=== PATIENT | male | born 1940 | race African-American/Black ===

== ENCOUNTER 2020-11-19 19:37 | Inpatient (IN) | payer OTHER ==
[~2020-11-19] VITALS: Ht 170.2 cm; Wt 93.9 kg
--- NOTE | ~2020-11-19 | HC ---
[facility] [place] [address] CONSULTATION Name: KAREN DUENAS Room #: 201-P ADM IN M.R.#: [id number] Admission: 11/19/20 Attend Phys: Augustine Caldera MD Discharge: Date of : 42 Report #: [id number] THIS REPORT FOR: cc: ANDRES - No family physician/PCP FAM - No family physician/PCP Rafa Milan MD ~ DATE OF SERVICE: 11/29/2020 HISTORY OF PRESENT ILLNESS: The patient is a 79-year-old white male who was admitted with syncope with loss of consciousness. Noted to have acute renal insufficiency, left upper lobe pneumonia. He was diagnosed with sepsis. He was noted to have acute hypoxic respiratory failure. His creatinine is plateauing at around 4.1. He has not needed any dialysis. He has been treated for atrial fibrillation with rapid ventricular response. PAST MEDICAL HISTORY: Includes diabetes mellitus type 2, bilateral rotator cuff surgery, chronic kidney disease. 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 Lives in a house with his . No assistive device. PHYSICAL EXAMINATION: GENERAL: A 79-year-old male, in no obvious distress. VITAL SIGNS: Temperature 97.5, pulse 72, respirations 18, blood pressure 149/59. He is on 2 liters nasal cannula. EXTREMITIES: Bilateral lower extremity nonpitting edema. He has been ambulating including walking up in the halls. This includes ambulation up to 450 feet. Standby assistance are 11/25 without adaptive devices. On 11/26/2020, occupational therapy has actually discharged him as they noted that he was at his baseline for ADLs. ASSESSMENT: 79-year-old white male with the following problem list: 1. Syncope with loss of consciousness. 2. Acute hypoxic respiratory failure, which is improving. 3. Community acquired pneumonia. 4. Sepsis. 5. Atrial fibrillation with rapid ventricular response. 6. Chronic kidney disease. Nephrology is involved with stabilization around a creatinine of 4.1. PLAN: Occupational therapy has already discharged him and he is ambulating quite well in physical therapy as documented. I do not see that he would meet criteria for an acute [address] [place] [address] inpatient rehabilitation stay as he appears to be too high level. [facility] [address] [place] [address] CONSULTATION Name: KAREN DUENAS Room #: 201-P ADM IN M.R.#: [id number] Admission: 11/19/20 Attend Phys: Augustine Caldera MD Discharge: Date of : 42 Report #: [id number] Thank you for asking us to assist in this patient's care. By: [id number] Rafa Milan MD /nt
[2020-11-19 19:57] VITALS: BP 153/66
[2020-11-19 20:49] LABS: ABSOLUTE NEUTROPHILS 12.7 thou/uL (1.4-8.2); BASOPHILS 0.6 % (0.0-2.0); EOSINOPHILS 0.1 % (0.0-3.0); HEMATOCRIT 36.3 % (42.0-52.0); HEMOGLOBIN 12.1 gm/dL (14.0-18.0); LYMPHOCYTES 8.6 % (24.0-44.0); MCH 31.2 pg (26.0-34.0); MCHC 33.3 g/dL (28.0-37.0); MCV 93.8 fL (80.0-100.0); MONOCYTES 7.8 % (1.0-8.0); PLATELET COUNT 238 thou/uL (150-400); POLYS 82.9 % (36.0-66.0); RBC 3.87 mil/uL (4.50-6.00); RDW 13.1 % (10.5-14.5); WBC 15.3 thou/uL (4.0-11.0)
[2020-11-19 20:51] LABS: CALCIUM 8.9 mg/dL (8.5-10.1); CREATININE 2.4 mg/dL (0.7-1.3); POTASSIUM 4.2 mmol/L (3.5-5.1)
[2020-11-19 20:58] LABS: ALBUMIN 2.9 g/dL (3.4-5.0); TOTAL BILIRUBIN 0.8 mg/dL (0.2-1.0); TOTAL PROTEIN 8.2 g/dL (6.4-8.2)
[2020-11-19] MEDS ORDERED: AMLODIPINE BESY10 MG PO (20:59)
[2020-11-19] MEDS ORDERED: GLIPIZIDE 10 MG10 MG PO (20:59)
[2020-11-19] MEDS ORDERED: ACTOS 45 MG45 M1 PO (21:00)
[2020-11-19] MEDS ORDERED: GLUMETZA1000 PO (21:00)
[2020-11-19] MEDS ORDERED: ZOCOR 20 MG TAB20 M1 PO (21:00)
[2020-11-19] MEDS ORDERED: HYDROCHLOROTHIA25 M1 PO (21:01)
[2020-11-19 23:10] LABS: URINE BILIRUBIN NEGATIVE (Negative); URINE BLOOD 1+ (Negative); URINE CLARITY CLEAR; URINE COLOR YELLOW; URINE GLUCOSE-RANDOM* NEGATIVE (Negative); URINE KETONES 1+ (Negative); URINE LEUKOCYTES-REFLEX NEGATIVE (Negative); URINE NITRITE-REFLEX NEGATIVE (Negative); URINE PROTEIN (DIPSTICK) 2+ (Negative); URINE SPECIFIC GRAVITY >= 1.030 (1.005-1.035); URINE UROBILINOGEN 0.2 E.U./dl (0.2-1.0)
[2020-11-19 23:21] LABS: FINE GRANULAR CASTS 0-3 Few /LPF (None Seen); HYALINE CASTS 0-3 Few /LPF (None Seen); MUCUS 0-3 Light strn/LPF (None Seen); SQUAMOUS None Seen /LPF (0-3); URINE WBC-REFLEX None Seen /HPF (0-5)
[2020-11-19 23:22] LABS: BACTERIA-REFLEX None Seen /HPF (None Seen); CRYSTALS None Seen /LPF (None Seen); URINE RBC 1-2 Rare /HPF (NONE SEEN)
[2020-11-20] VITALS (7 sets, daily range): BP systolic 121–170; BP diastolic 55–78
--- NOTE | 2020-11-20 02:49 | NUR ---
EXPLAINED VISITING HOURS TO AT 2400, SHE VERBALIZES UNDERSTANDING OF THIS
--- NOTE | 2020-11-20 15:26 | NUR ---
ASSUMED CARE OF PT AT 0700 THIS MORNING. PT HAS BEEN DX WITH PNUEMONIA BUT IS DOING WELL. PT IS A/OX4 WITH DIMINISHED LT LOWER RYAN AND WHEEZES THROUGOUT. ASSESSMENTS NOTE IN CHART AND OTHERWISE UNREMARKABLE. IV IN LT AC WITH NS AT 126ML/HR. PT CAN TRANFER TO BEDSIDE COMODE X1 ASST WITH GB. MEDS AND TX GIVEN NEEDED AND SCHEDULED. WILL MONITOR AND NOTE ANY CHANGES.
[2020-11-21] VITALS (7 sets, daily range): BP systolic 150–187; BP diastolic 66–97
--- NOTE | 2020-11-21 04:06 | NUR ---
PT ASSESSMENT COMPLETED AND VSS. MEDS GIVEN ORDERED AND WELL TOLERATED. FALL PRECAUTIONS IN PLACE. PTS IN ROOM EARLY DURING THE SHIFT. SHE IS VERY PLEASANT AND SUPPORTIVE AND REALLY HELPS TO CALM PT. PT IS THINKING THAT HE WILL BE GOING HOME IN THE MORNING. TALKED WITH PT AND ABOUT HOW STAYING IN THE HOSPITAL IS IMPORTANT BECAUSE OF HIS PNEUMONIA. SAT WNL ON NC. IVF RUNNING. TYLENOL GIVEN FOR GENERAL DISCOMFORT AND LOW GRADE FEVER. PT VERY IMPULSIVE AND TRYING TO GO TO THE BSC WITHOUT CALLING. PT STATES THAT HE IS USED TO DOING THINGS ON HIS OWN. PROVIDED EDUCATION REGARDING CALLING FIRST AND BED ALARMS FOR SAFETY. PT STILL GETTING UP WITHOUT CALLING AT TIMES. PT HAD TWO LOOSE LARGE BROWN STOOLS THIS EVENING. VOIDING LARGE AMOUNT OF YELLOW URINE. SLEEPING WELL AT THIS TIME. HOB ELEVATED. WILL CONTINUE TO MONITOR FREQUENTLY. RT TREATMENTS CONTINUE.
--- NOTE | 2020-11-21 05:49 | NUR ---
OTTO CALLED X2, TECH STATES SHE IS BUSY WITH ANOTHER PATIENT BOTH TIMES. CECI NOTIFIED THAT PT IS TACHYPNEIC, DIAPHORETIC, AUDIBLY GURGLING, PANICKING, TRI-PODING AT BEDSIDE. HR 170-180, STAT EKG OBTAINED AND SENT TO [facility]EL[facility]. LASIX GIVEN PER ORDERS, O2 UP TO 4L NC, PT WITH SOME RELIEF.
[2020-11-21 07:05] LABS: HEMATOCRIT 35.6 % (42.0-52.0); HEMOGLOBIN 12.1 gm/dL (14.0-18.0); MCH 31.6 pg (26.0-34.0); RBC 3.83 mil/uL (4.50-6.00); RDW 13.2 % (10.5-14.5); WBC 12.7 thou/uL (4.0-11.0)
[2020-11-21 07:10] LABS: CALCIUM 8.2 mg/dL (8.5-10.1); CREATININE 1.8 mg/dL (0.7-1.3); POTASSIUM 4.1 mmol/L (3.5-5.1)
--- NOTE | 2020-11-21 08:57 | NUR ---
PT VERY SOA LATE THIS MORNING. HR ELEVATED. CONTACTED VALERIE ULLOA AND TALKED WITH RUTHIE FONG. FOLLOWED ORDERS GIVEN BY VALERIE ULLOA AND ASSISTED RUTHIE FONG AT BEDSIDE. PT APPEARS MORE COMFORTABLE AND CALM. HR COMING DOWN. TRANSFERED PT TO ROOM 201 AND GAVE REPORT TO DAY LUIS DANIELS.
--- NOTE | 2020-11-21 16:09 | 2DMMODE ---
[facility] [address] [place] [address] 2 D/M-MODE ECHOCARDIOGRAM Name: KAREN DUENAS Room #: 201-P ADM IN M.R.#: [id number] Admission: 11/19/20 Attend Phys: Israel Sweet MD Discharge: Date of : 41 Report #: [id number] THIS REPORT FOR: cc: FAM - No family physician/PCP FAM - No family physician/PCP Sky Perkins MD ~ APPROVED REPORT Study performed: 11/21/2020 12:40:12 EXAM: Comprehensive 2D, Doppler, and color-flow Echocardiogram Patient Location: Bedside Room #: 201 Status: on-call BSA: 1.93 HR: 125 bpm BP: 150/70 mmHg Rhythm: Tachycardia Other Information Study Quality: Adequate Risk Factors: Cardiac Risk Factors: DM Indications Dyspnea Syncope 2D Dimensions RVDd: 20.18 mm IVSd: 8.33 (7-11mm) LVOT Diam: 19.00 (18-24mm) LVDd: 46.04 mm PWd: 10.44 (7-11mm) Ascending Ao: 36.58 (22-36mm) LVDs: 34.15 (25-40mm) Aortic Root: 28.86 mm LV Single Plane 4CH: 55.90 % LV Single Plane 2CH: 61.35 % Biplane EF: 58.5 % Volumes Left Atrial Volume (Systole) Single Plane 4CH: 57.60 mL Single Plane 2CH: 39.86 mL LA ESV Index: 28.00 mL/m2 [facility] [address] [place] [address] 2 D/M-MODE ECHOCARDIOGRAM Name: YULISSAKAREN Room #: 201-P [facility] IN .R.#: [id number] Admission: 11/19/20 Attend Phys: Layla Zapata Discharge: Date of : 41 Report #: [id number] Aortic Valve AoV Peak Lebron.: 1.80 m/s AO Peak Gr.: 12.90 mmHg LVOT Max P.70 mmHg LVOT Max V: 1.19 m/s KIRK Vmax: 1.92 cm2 Pulmonary Valve PV Peak Lebron.: 1.22 m/s PV Peak Gr.: 5.92 mmHg Tricuspid Valve TR Peak Lebron.: 3.09 m/s RAP Estimate: 10.00 mmHg TR Peak Gr.: 38.21 mmHg PA Pressure: 48.00 mmHg Left Ventricle The left ventricle is normal size. There is normal LV segmental wall motion. There is normal left ventricular wall thickness. Left ventricular systolic function is normal. The left ventricular ejection fraction is within the normal range. LVEF is 55-60%. This study is not technically sufficient to allow evaluation of the LV diastolic function. Right Ventricle The right ventricle is normal size. The right ventricular systolic function is normal. Atria The left atrium size is normal. The right atrium size is normal. Aortic Valve The aortic valve is normal in structure. No aortic regurgitation is present. There is no aortic valvular stenosis. Mitral Valve The mitral valve is normal in structure. There is no mitral valve regurgitation noted. No evidence of mitral valve stenosis. Tricuspid Valve The tricuspid valve is normal in structure. Mild tricuspid regurgitation. Pulmonary artery pressure is 48 mmHg. Pulmonic Valve The pulmonary valve is normal in structure. There is no pulmonic valvular regurgitation. [facility] [place] [address] 2 D/M-MODE ECHOCARDIOGRAM Name: DUENASKAREN Room #: 201-P ADM IN M.R.#: [id number] Admission: 11/19/20 Attend Phys: Layla Zapata Discharge: Date of : 41 Report #: [id number] Great Vessels The aortic root is normal in size. The ascending aorta is normal in size. IVC is dilated and collapses >50% with inspiration. Pericardium There is no pericardial effusion. <Conclusion> The left ventricle is normal size. There is normal LV segmental wall motion. LVEF is 55-60%. The right ventricle is normal size. The left atrium size is normal. The aortic valve is normal in structure. The mitral valve is normal in structure. The tricuspid valve is normal in structure. Mild tricuspid regurgitation. Pulmonary artery pressure is 48 mmHg. The pulmonary valve is normal in structure. The aortic root is normal in size. There is no pericardial effusion. <ELECTRONICALLY SIGNED> By: Sky Perkins MD 11/21/20 1608 [id number] Sky Perkins MD /INF
--- NOTE | 2020-11-21 18:39 | NUR ---
PT TRANSFER FROM [facility] AT 0700 DUE TO AFIB HEART RATE 150'S. PT STARTED ON CARDIZEM GTT. HEART RATE NOW IN THE 90'S. PT ALERT AND ORIENTED TIMES FOUR. DENIES PAIN. SOA ON EXCERTION 3L NC. PT TOLERATES MEDS AND MEALS. PT UP TO BSC WITH STANBY ASSIST. PT AT BEDSIDE. WILL CONTINUE TO MONITOR.
--- NOTE | 2020-11-22 02:48 | NUR ---
ASSUMED CARE OF PT AT 1900, PT ASSESSMENT COMPLETED NOTED. PT REMAINS ON O2 @ 4LPM NC, WITH AUDIBLE EXP WHEEZE, PT DENIES PAIN AT THIS TIME. PT INSTRUCTED TO USE CALL LIGHT PRIOR TO AMBULATING TO BEDSIDE COMMODE, PT STATES UNDERSTANDING. FALL PRECAUTIONS IN PLACE. @ 2040 PT HR INCREASED TO THE 160'S AFTER AMBULATION CARDIZEM DRIP INCREASED TO 15MG PER PROTOCOL, HR DECREASED TO 116 AFTER 20 MINUTES AT WHICH TIME MEDICATION TITRATED DOWN TO 10MG/HR. @ 2315 PT HR INCREASED TO 150'S AFTER AMBULATION, MEDICATION TITRATED UP TO 15MG/HR PER PROTOCOL. PT HR DECREASED TO 117 AFTER 10 MINUTES, MEDICATION TITRATED DOWN TO 10MG/HR. PT DENIES CP, BUT BECOMES SOA WITH AMBULATION. WILL CONTINUE TO WORK TOWARDS PT'S POC.
[2020-11-22 03:58] LABS: CALCIUM 7.7 mg/dL (8.5-10.1); POTASSIUM 4.2 mmol/L (3.5-5.1)
[2020-11-22 04:00] LABS: HEMATOCRIT 31.7 % (42.0-52.0); HEMOGLOBIN 10.9 gm/dL (14.0-18.0); MCH 32.3 pg (26.0-34.0); MCHC 34.3 g/dL (28.0-37.0); MCV 94.2 fL (80.0-100.0); RBC 3.36 mil/uL (4.50-6.00); RDW 13.2 % (10.5-14.5); WBC 11.8 thou/uL (4.0-11.0)
[2020-11-22 04:03] LABS: CREATININE 2.8 mg/dL (0.7-1.3)
[2020-11-22 04:41] VITALS: BP 152/56
[2020-11-22 07:10] VITALS: BP 124/71
[2020-11-22 11:00] VITALS: BP 140/60
[2020-11-22 15:00] VITALS: BP 124/58
--- NOTE | 2020-11-22 15:50 | NUR ---
PT RESTING COMFORTABLY. CARDIZEM GTT AT 20. PT AFEBRILE, ADEQUATE UOP, NO BM, FAIR APPETITE. PT AND FAMILY HAVE BEEN THOUROUGHLY UPDATED AND EDUCATED ON PT CONDITION AND POC. PT SLOWLY PROGRESSING TOWARDS POC.
[2020-11-22 20:40] VITALS: BP 152/64
[2020-11-22 21:25] LABS: URINE BILIRUBIN NEGATIVE (Negative); URINE BLOOD 3+ (Negative); URINE CLARITY SL CLOUDY; URINE COLOR YELLOW; URINE GLUCOSE-RANDOM* NEGATIVE (Negative); URINE KETONES NEGATIVE (Negative); URINE LEUKOCYTES NEGATIVE (Negative); URINE NITRITE NEGATIVE (Negative); URINE PROTEIN (DIPSTICK) 2+ (Negative); URINE UROBILINOGEN 0.2 E.U./dl (0.2-1.0)
[2020-11-22 21:31] LABS: URINE PROTEIN-RANDOM* 211.9 mg/dL (<11.9)
[2020-11-22 21:44] LABS: SQUAMOUS 0-3 Few /LPF (0-3)
[2020-11-22 21:45] LABS: BACTERIA 1-9 Few /HPF (None Seen); CELLULAR CASTS 0-3 Few /LPF (None Seen); CRYSTALS None Seen /LPF (None Seen); HYALINE CASTS 0-3 Few /LPF (None Seen); MUCUS 0-3 Light strn/LPF (None Seen)
--- NOTE | 2020-11-22 22:36 | HC ---
[facility] [place] [address] CONSULTATION Name: KAREN DUENAS Room #: 201-P ADM IN M.R.#: [id number] Admission: 11/19/20 Attend Phys: Israel Sweet MD Discharge: Date of : 41 Report #: [id number] THIS REPORT FOR: cc: FAM - No family physician/PCP FAM - No family physician/PCP Sky Perkins MD ~ DATE OF SERVICE: 11/21/2020 REASON FOR CONSULTATION: Syncope. HISTORY OF PRESENT ILLNESS: This is a 79-year-old gentleman without prior history of coronary artery disease, presented from home with episode of syncope. The patient's history is obtained from the patient and friend who witnessed the events. Apparently, he has passed out 3 times over the last 24 hours. On the last one, he called a friend because he thought he had broken his nose. His friend is an ER nurse and whatever sitting on the porch, he slumped over and had a pulse, but was unresponsive. The patient stated he remembers before, but did not remember the event itself. He denied any chest pain, pressure, tightness or heaviness. He does have diabetes type 2, but is otherwise fairly healthy and has not had any of these issues except for the presence of Meniere's disease. The patient did not have any findings prior to admission. He did not have any fever, chills, night sweats and had been hydrating fairly well according to the patient. He does not drink a lot of water, but drinks juices. He was identified as having a left upper lobe pneumonia and admitted. After admission, he developed atrial fibrillation with a rapid ventricular response and consultation was obtained. The patient did not note that his heart rate was racing at that time. He does not realize that his heart rate is racing currently in the 130s to 140s. He has never had a history of atrial fibrillation according to himself. ALLERGIES: No known drug allergies. PAST MEDICAL HISTORY: Significant for diabetes mellitus, hypertension, dyslipidemia. PAST SURGICAL HISTORY: Significant for bilateral rotator cuff surgeries in the past. FAMILY HISTORY: Father has diabetes. Mother with myocardial infarction at a premature age. 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 Electrocardiogram, sinus rhythm, nonspecific ST-T wave changes. [facility] [address] [place] [address] CONSULTATION Name: KAREN DUENAS Room #: 201-P [facility] IN M.R.#: [id number] Admission: 11/19/20 Attend Phys: Israel Sweet MD Discharge: Date of : 41 Report #: [id number] MONITOR: Atrial fibrillation with rapid ventricular response. REVIEW OF SYSTEMS: Except for symptoms of ____, the 10-point review of system is negative. PHYSICAL EXAMINATION: GENERAL: Well-developed, well-nourished male, resting comfortably in no acute distress. HEENT: Normocephalic, atraumatic. Pupils are equal, round, reactive to light and accommodation. Extraocular muscles are intact. Sclerae and conjunctivae are anicteric. NECK: JVD is normal. Carotid upstrokes are bilaterally symmetrical. No bruits are heard. No thyromegaly. No lymphadenopathy. LUNGS: Demonstrate some end expiratory wheezes. CARDIAC: Regular rhythm, tachycardic rate. No overt gallops are noted. ABDOMEN: Soft, nontender, nondistended. Normal bowel sounds. EXTREMITIES: Without cyanosis, clubbing or edema. Distal pulses are intact. DTR symmetrical. NEUROLOGIC: Cranial nerves 2-12 are grossly normal and symmetrical. PSYCHIATRIC: Alert, oriented with normal affect. SKIN: Warm and dry. IMPRESSION: 1. Atrial fibrillation with rapid ventricular response, likely due to the above infection. Either way, we will try and slow down at the present time with IV diltiazem. We will obtain 2D echo Doppler to rule out any structural abnormalities, to assess chamber sizes and pulmonary pressures if possible. 2. Syncope, multifactorial, may be infection, may be episode of atrial fibrillation developed and then resolved, but we will monitor and observe. 3. Pneumonia as per primary care on antibiotics. 4. Diabetes mellitus, appears to be stable and not been hypoglycemic at that time. 5. Hypertension. We will monitor blood pressures, so that we can verify that he is at target. 6. Dyslipidemia. We will talk about the [place] [employer] step 1 diet with the patient. He does not think he has any other medical problems, but he is on medications for dyslipidemia and therefore, we will emphasize same. <ELECTRONICALLY SIGNED> By: Sky Perkins MD 11/22/20 [id number] 26 Sky Perkins MD /nt
[2020-11-22 23:45] VITALS: BP 120/93
--- NOTE | 2020-11-23 03:47 | NUR ---
ASSUMED CARE OF PT AT 1900, PT REMAINS ON 4LNC. ASSESSMENT COMPLETED NOTED, DILTIAZEM DRIP CONTINUES TO RUN AT 20MG/HR, HR AT 90BPM. PT DENIES PAIN, INCREASED SOA, BS WHEEZES BILAT. WILL CONTINUE WORKING TOWARDS PT'S POC.
[2020-11-23 04:10] VITALS: BP 133/63
[2020-11-23 04:34] LABS: ALBUMIN 1.8 g/dL (3.4-5.0); CALCIUM 7.7 mg/dL (8.5-10.1); PHOSPHORUS 4.3 mg/dL (2.5-4.9); POTASSIUM 4.6 mmol/L (3.5-5.1)
[2020-11-23 04:36] LABS: CREATININE 4.2 mg/dL (0.7-1.3)
[2020-11-23 07:30] VITALS: BP 144/57
--- NOTE | 2020-11-23 07:36 | EKG ---
[place] [address] [facility] [place] [address] ELECTROCARDIOGRAM REPORT Name: KAREN DUENAS Room #: 201-P ADM IN M.R.#: [id number] Admission: 11/19/20 Attend Phys: Israel Sweet MD Discharge: Date of : 41 Report #: [id number] [facility] Test Date: 2020-11-21 Test Time: 05:42:33 Pat Name: KAREN DUENAS Department: Room: 201 Gender: M Reimbursement Rep: ASHLEIGH : 1940 Requested By: Catrina Durand Order Number: [id number] MD: Guillaume Conklin Measurements Intervals Feura Bush Rate: 161 P: 265 [place]: 110 QRS: 19 QRSD: 76 T: QT: 250 QTc: 409 Interpretive Statements Supraventricular tachycardia, suspect AFIB Repolarization abnormality, prob rate related Baseline wander in lead(s) V2 No previous ECG available for comparison Electronically Signed On 11-23-2020 7:36:11 CDT by Guillaume Conklin [email or web address] <ELECTRONICALLY SIGNED> By: Guillaume Conklin MD, [facility] 11/23/20 0736 0542 1 Guillaume Conklin MD, FACC /EPI
[2020-11-23 11:25] VITALS: BP 147/70
--- NOTE | 2020-11-23 13:07 | NUR ---
VAT CONSULTED OFR PICC PLACEMENT, [place] BY DR [id number] . PT'S LABS,MEDS,HX ORDER AND CONSENT VERIFIED.EUGENIE LINN WAS WIDELY PATENT WITH USG. 6FR TL PICC TRIMMED TO 45CM INSERTED TO 2CM EXTERNAL. PT TOLERATED WELL. STAT CXR ORDERED
--- NOTE | 2020-11-23 13:11 | NUR ---
CXR CONFIRMED PLACEMENT AT [facility], RELEASED FOR IMMEDIATE USE PER PROTOCOL TO VÍCTOR SMITH
[2020-11-23 16:15] VITALS: BP 154/75
[2020-11-23 19:20] VITALS: BP 164/81
[2020-11-23 19:24] VITALS: BP 164/81
[2020-11-24 04:00] VITALS: BP 107/75
[2020-11-24 05:09] LABS: ALBUMIN 1.6 g/dL (3.4-5.0); CALCIUM 7.7 mg/dL (8.5-10.1); CREATININE 4.7 mg/dL (0.7-1.3); PHOSPHORUS 3.7 mg/dL (2.5-4.9); POTASSIUM 3.8 mmol/L (3.5-5.1)
[2020-11-24 07:00] VITALS: BP 170/86
--- NOTE | 2020-11-24 09:54 | NUR ---
Met with patient at bedside. Patient admits with PNA. Patient resides at home in independent home. All needs on one level. Patient reports service captain independent with adls and self care. He works on cattle farm. He reports no DME service captain. reports service captain weak for approx a week. Therapy arrived to visit with patient, Daisy following
[2020-11-24 11:28] VITALS: BP 124/64
[2020-11-24 16:07] VITALS: BP 151/70
[2020-11-24 20:23] VITALS: BP 174/85
[2020-11-24 21:30] VITALS: BP 160/72
[2020-11-25] VITALS (7 sets, daily range): BP systolic 123–161; BP diastolic 56–88
--- NOTE | 2020-11-25 00:30 | NUR ---
Pt. had gotten up to the comode and had a bowel movement. His heart rate went up into the 180's and showed a-fib on the tele monitor. Pt. assisted back to bed and heart rate went into the 160's and sustained there. Dr. Gonzalez called and notified. New order to start cardizem gtt (see cpoe). Pt. is alert and oriented and offers no complaints.
--- NOTE | 2020-11-25 03:00 | NUR ---
Pt. continues to be in afib on the tele monitor and heart rate continues to be in the 160's. Cardizem gtt infusing at 20 ml/hr. Bp stable. Dr. Gonzalez called and notified with new orders to keep pt. npo. No further orders. Pt. offers no complaints. Resting quietly in the bed.
[2020-11-25 06:40] LABS: ALBUMIN 1.5 g/dL (3.4-5.0); CALCIUM 7.8 mg/dL (8.5-10.1); CREATININE 4.6 mg/dL (0.7-1.3); POTASSIUM 3.7 mmol/L (3.5-5.1)
[2020-11-26 04:15] VITALS: BP 144/65
[2020-11-26 05:05] LABS: HEMATOCRIT 28.9 % (42.0-52.0); HEMOGLOBIN 9.8 gm/dL (14.0-18.0); MCH 31.6 pg (26.0-34.0); MCHC 33.8 g/dL (28.0-37.0); MCV 93.4 fL (80.0-100.0); RBC 3.09 mil/uL (4.50-6.00); RDW 14.2 % (10.5-14.5); WBC 9.2 thou/uL (4.0-11.0)
[2020-11-26 05:35] LABS: ALBUMIN 1.5 g/dL (3.4-5.0); CALCIUM 7.7 mg/dL (8.5-10.1); CREATININE 4.5 mg/dL (0.7-1.3); MAGNESIUM 1.3 mg/dL (1.8-2.4); PHOSPHORUS 3.3 mg/dL (2.5-4.9); POTASSIUM 3.9 mmol/L (3.5-5.1)
--- NOTE | 2020-11-26 06:14 | NUR ---
Assumed pt's care beginning of this pm shift. Alert and oriented x4. VSS on 3L O2. Pt denies cp, n/v. PICC x3 lumen to EUGENIE. Meds given per emar. PRN tessalon ameya given per pt's request. Pt able to sit and void via urinal by side of bed. Educated to call when needing assistance. Call light within reach. Nursing to continue to monitor.
[2020-11-26 07:15] VITALS: BP 153/73
--- NOTE | 2020-11-26 10:39 | NUR ---
Assess for length of stay. Admit with pneumonia, BORIS/ATN. Pt has not been feeling well past week and appetite poor. Visit this am, ate better and likes glucerna shakes that are ordered with meals. very supportive and assisting with ordering. No significant wt loss. Low nutrition risk with appropriate nutrition interventions in place
[2020-11-26 11:25] VITALS: BP 148/66
[2020-11-26 15:45] VITALS: BP 144/20
--- NOTE | 2020-11-26 17:39 | NUR ---
Patient cont with oxygen needs. He lives in [facility]. Anticipate no dc over weekend.
[2020-11-26 19:24] VITALS: BP 153/58
[2020-11-27 00:06] LABS: GLYCOHEMOGLOBIN (HGB A1C) 8.1 % (4.8-5.6)
[2020-11-27 00:15] VITALS: BP 157/60
--- NOTE | 2020-11-27 04:42 | NUR ---
ASSUMED PT CARE AT 1900, PT IS AWAKE, ALERT AND ORIENTED, SPOUSE AT BEDSIDE, DENIES PAIN OR SOB, REMAINS ON 3L NC, 02SATS STABLE, PT CONVERTED BACK TO SR/SA, HR IN THE 60S, CARDIZEM TITRATED OFF, PT IS UPTO THE CHAIR THIS MORNING, NO CONCERNS VOICED, WILL CONTINUE TO MONITOR AND FOLLOW POC
[2020-11-27 05:00] VITALS: BP 163/70
[2020-11-27 07:05] VITALS: BP 150/70
--- NOTE | 2020-11-27 09:15 | NUR ---
CONTACT PHLEBOTOMY TO COME AND DRAW AM LABS.
[2020-11-27 11:20] VITALS: BP 151/60
[2020-11-27 14:55] LABS: ALBUMIN 1.7 g/dL (3.4-5.0); CALCIUM 8.3 mg/dL (8.5-10.1); CREATININE 4.3 mg/dL (0.7-1.3); MAGNESIUM 1.9 mg/dL (1.8-2.4); POTASSIUM 4.4 mmol/L (3.5-5.1)
[2020-11-27 15:50] VITALS: BP 147/57
--- NOTE | 2020-11-27 16:36 | NUR ---
2mg cathflo to all three lumens of PICC for patency mu-ism.
--- NOTE | 2020-11-27 16:50 | NUR ---
PT AMBULATED HALLS WELL TODAY AND TOLERATED WALKING. IV TEAM CATH JOAQUIN RIGHT UPPER ARM TRIPLE LUMEN PICC. WILL CONTINUE TO ASSESS.
[2020-11-27 19:13] VITALS: BP 152/63
[2020-11-28 03:36] VITALS: BP 158/74
[2020-11-28 05:11] LABS: ALBUMIN 1.6 g/dL (3.4-5.0); CALCIUM 7.8 mg/dL (8.5-10.1); POTASSIUM 3.9 mmol/L (3.5-5.1)
--- NOTE | 2020-11-28 05:13 | NUR ---
ASSUMED PT CARE AT CHANGE OF SHIFT, ALERT AND ORIENTED, DENIES PAIN OR SOB, MEDS GIVEN PER MAR, ASSESSMENTS CHARTED, VSS, NO ACUTE DISTRESS NOTED, BLE EXTREMITY NOTED, WILL CONTINUE TO MONONITOR AND FOLLOW POC
[2020-11-28 08:00] VITALS: BP 166/72
[2020-11-28 12:00] VITALS: BP 158/72
[2020-11-28 16:00] VITALS: BP 155/67
[2020-11-28 19:11] VITALS: BP 171/68
--- NOTE | 2020-11-28 19:54 | NUR ---
PT IS AXOX4, PLEASANT; VSS, AFEBRILE, SR ON THE MONITOR. DENIES PAIN. PT HAS BLE NON PITTING EDEMA, BUT STATES EDEMA "IS LESS THAN IT HAS BEEN." DR VAZQUEZ CONSULTED, DR HYDE CONSULTED, DR RAZO CONSULTED. PT SWITCHED TO ORAL ABX. CONTINUE TO MONITOR O2 SATS AND ASSESS HR/RHYTHM TO ENSURE PT REMAINS IN SR. POSSIBLE D/C ON 11/29. LOW FALL PRECAUTIONS IN PLACE. NO CONCERNS AT THIS TIME.
--- NOTE | 2020-11-29 02:38 | NUR ---
ASSUMED PT CARE AT 1900, ALERT AND ORIENTEDX4, REMAINS SR ON TELE, DENIES PAIN OR SOB, ON 2L NC, O2SATS STABLE IN THE UPPER 90S, ASSESSMENTS CHARTED, SLEPT ON THE RECLINER, LEGS ELEVATED D/T EDEMA, NO NEEDS AT THIS TIME, POSSIBLE DC TODAY
[2020-11-29 04:57] VITALS: BP 156/59
[2020-11-29 06:04] LABS: HEMOGLOBIN 9.2 gm/dL (14.0-18.0); MCH 31.6 pg (26.0-34.0); MCHC 34.2 g/dL (28.0-37.0); MCV 92.4 fL (80.0-100.0); RBC 2.92 mil/uL (4.50-6.00); RDW 14.4 % (10.5-14.5); WBC 7.8 thou/uL (4.0-11.0)
[2020-11-29 06:13] LABS: ALBUMIN 1.7 g/dL (3.4-5.0); CALCIUM 8.1 mg/dL (8.5-10.1); CREATININE 4.1 mg/dL (0.7-1.3); MAGNESIUM 1.5 mg/dL (1.8-2.4); PHOSPHORUS 4.8 mg/dL (2.5-4.9); POTASSIUM 3.8 mmol/L (3.5-5.1)
[2020-11-29 08:00] VITALS: BP 149/59
--- NOTE | 2020-11-29 14:08 | NUR ---
CONSULT RECEIVED FOR [facility] AND Pt REVIEWED BY DR. MAIER. Pt IS TOO HIGH LEVEL FOR ACUTE REHAB. ACUTE OT SERVICES HAVE ALREADY SIGNED OFF ON Pt. THANK YOU FOR THIS REFERRAL.
[2020-11-29 16:00] VITALS: BP 152/63
--- NOTE | 2020-11-29 18:12 | NUR ---
Met with patient, evaled by [facility] but too high level. Discussed home health care with patient. Discussed need to find HH agency in area that also takes insurance. Patient will likely need home oxygen at discharge.
[2020-11-29 19:59] VITALS: BP 163/74
[2020-11-29 20:28] VITALS: BP 151/91
--- NOTE | 2020-11-30 02:42 | NUR ---
PT IS ALERT AND ORIENTED X4. LUNGS ARE DIMINISHED. ON 2 LITERS NASAL CANULA. VOIDS PER URINAL CLEAR YELLOW . SLEEPING IN THE CHAIR COMFORTALBE. DENIES ANY PAIN NOTED WITH ASSESSMENTS. ACCU CHECKS AND REQUIREMENTS OF INSULLIN SEE MAR FOR ADMINISTRATION. ONGOING NURSING CARE. CALL LIGHT WITHHIN REACH.
[2020-11-30 03:25] VITALS: BP 169/78
[2020-11-30 06:33] LABS: ALBUMIN 1.9 g/dL (3.4-5.0); CALCIUM 8.4 mg/dL (8.5-10.1); CREATININE 3.8 mg/dL (0.7-1.3); PHOSPHORUS 5.1 mg/dL (2.5-4.9); POTASSIUM 4.1 mmol/L (3.5-5.1)
[2020-11-30 08:00] VITALS: BP 169/66
[2020-11-30 11:45] VITALS: BP 53/60
[2020-11-30] MEDS ORDERED: ALPRAZOLAM 0.0.25 M1 PO (13:19)
[2020-11-30] MEDS ORDERED: CARDIZEM CD 18180 M3 PO (13:19)
[2020-11-30] MEDS ORDERED: TESSALON PERLE100 MG PO (13:19)
[2020-11-30] MEDS ORDERED: CEFUROXIME500 MG PO (13:19)
[2020-11-30] MEDS ORDERED: MELATONIN5 M1 PO (13:19)
[2020-11-30] MEDS ORDERED: LASIX 20 MG TAB20 MG PO (13:19)
[2020-11-30] MEDS ORDERED: MUCINEX600 MG PO (13:19)
[2020-11-30] MEDS ORDERED: METOPROLOL SUCC25 M1 PO (13:19)
[2020-11-30] MEDS ORDERED: ACETAMINOPHEN325 M1 PO (13:19)
[2020-11-30] MEDS ORDERED: ELIQUIS5 MG PO (13:19)
[2020-11-30] MEDS ORDERED: ACCUNEB SO1.25 MG/1 INH (13:19)
[2020-11-30 14:06] VITALS: BP 53/60
--- NOTE | 2020-11-30 15:24 | NUR ---
Patient stable to dc today with . He has no preference of HH agency. Faxed referal to [facility] [phone]. Patient rec SAT/Excercise with no need for home oxygen. Sp with Liseth at care. She rec clinical and orders for start of care. Patients PCP is Penelope Wray. No further needs
--- NOTE | 2020-11-30 16:08 | NUR ---
PT ALERT AND ORIENTED TIMES FOUR. VSS. PT DENIES PAIN/SOA. PT TOLERATES MEDS AND MEALS. PT UP TO BSC WITH STANDBY ASSIST. PLANS TO DISCHARGE TODAY WILL CONTINUE TO MONITOR.
== END 2020-11-30 15:22 | disposition home health service (06) | DRG 871 ==
LOC: ER 19:37 → EROBS 22:08 → 2N 22:08 → 4S 11-20 06:13 → 2N 11-21 07:30
PROVIDERS: Hospitalist; Internal Medicine; Internal Medicine Pulmonary Disease; Nurse Practitioner Family; Physician Assistant; ADMIT Hospitalist; ATTEND Hospitalist
PROC: B548ZZA Ultrasonography of Superior Vena Cava, Guidance (ICD-10-PCS; principal; 2020-11-23)
PROC: 02HV33Z Insertion of Infusion Device into Superior Vena Cava, Percutaneous Approach (ICD-10-PCS; principal; 2020-11-23)
DX: A41.9 Sepsis, unspecified organism (principal); J18.9 Pneumonia, unspecified organism; J96.01 Acute respiratory failure with hypoxia; N17.0 Acute kidney failure with tubular necrosis; E87.2 Acidosis; E11.65 Type 2 diabetes mellitus with hyperglycemia; Z20.822 Contact with and (suspected) exposure to COVID-19; E86.0 Dehydration; E78.5 Hyperlipidemia, unspecified; I48.91 Unspecified atrial fibrillation; R53.81 Other malaise; N18.9 Chronic kidney disease, unspecified; E11.22 Type 2 diabetes mellitus with diabetic chronic kidney disease; D63.8 Anemia in other chronic diseases classified elsewhere; Z79.899 Other long term (current) drug therapy; Z83.3 Family history of diabetes mellitus; Z82.49 Family history of ischemic heart disease and other diseases of the circulatory system
CPT/HCPCS: 10081; 10195; 27000

== ENCOUNTER → 2021-04-27 | Outpatient (CLI) | payer OTHER ==
[~2021-04-27] MED LIST: ACCUNEB SO1.25 MG/1 INH; ACETAMINOPHEN325 M1 PO; ACTOS 45 MG45 M1 PO; ALPRAZOLAM 0.0.25 M1 PO; AMLODIPINE BESY10 MG PO; CARDIZEM CD 18180 M3 PO; CEFUROXIME500 MG PO; ELIQUIS5 MG PO; GLIPIZIDE 10 MG10 MG PO; GLUMETZA1000 PO; HYDROCHLOROTHIA25 M1 PO; LASIX 20 MG TAB20 MG PO; MELATONIN5 M1 PO; METOPROLOL SUCC25 M1 PO; MUCINEX600 MG PO; TESSALON PERLE100 MG PO; ZOCOR 20 MG TAB20 M1 PO
== END ==
LOC: SJCVC 10:16
PROVIDERS: ATTEND Internal Medicine
DX: I48.0 Paroxysmal atrial fibrillation (principal); R53.83 Other fatigue; R00.1 Bradycardia, unspecified; E11.22 Type 2 diabetes mellitus with diabetic chronic kidney disease; I12.9 Hypertensive chronic kidney disease with stage 1 through stage 4 chronic kidney disease, or unspecified chronic kidney disease; N18.9 Chronic kidney disease, unspecified; E78.5 Hyperlipidemia, unspecified; R07.9 Chest pain, unspecified; D63.8 Anemia in other chronic diseases classified elsewhere; Z79.84 Long term (current) use of oral hypoglycemic drugs; Z79.899 Other long term (current) drug therapy; Z82.49 Family history of ischemic heart disease and other diseases of the circulatory system

== ENCOUNTER → 2021-05-12 | Outpatient (CLI) | payer OTHER | LOC: SJCVCIMAG 09:44 | PROVIDERS: ATTEND Internal Medicine | DX: R06.00 Dyspnea, unspecified (principal); R00.1 Bradycardia, unspecified; R53.83 Other fatigue; I12.9 Hypertensive chronic kidney disease with stage 1 through stage 4 chronic kidney disease, or unspecified chronic kidney disease; E11.22 Type 2 diabetes mellitus with diabetic chronic kidney disease; N18.9 Chronic kidney disease, unspecified; E78.5 Hyperlipidemia, unspecified; I48.91 Unspecified atrial fibrillation; R07.9 Chest pain, unspecified; Z98.890 Other specified postprocedural states; Z79.899 Other long term (current) drug therapy ==